=== PATIENT | female | born 1965 | race Caucasian/White ===

== ENCOUNTER 2016-07-05 20:41 | Emergency (ER) | payer MEDICAID ==
[2016-07-05 21:44] LABS: Urine Appearance Clear; Urine Bilirubin Negative (NEGATIVE); Urine Color Yellow; Urine Ketone Negative (NEGATIVE)
[2016-07-05 21:45] LABS: Urine Blood Negative /ul (NEGATIVE); Urine Nitrite Negative (NEGATIVE); Urine Protein Negative (NEGATIVE); Urine Specific Gravity 1.005 SP.GR. (1.005-1.010); Urine Urobilinogen Normal (NORMAL); Urine pH 6.5 pH (5.0-7.0)
[2016-07-05 21:50] LABS: Urine RBC None Seen /hpf (0-5); Urine WBC None Seen /hpf (0-5)
[2016-07-05 21:51] LABS: Urine Bacteria None Seen
--- NOTE | 2016-07-05 22:05 | ERNOTE ---
Back Pain ER HPI Date of Service: 07/05/16 Time Seen by Provider: 07/05/16 22:00 Source: patient, family - GRAND DAUGHTER. Immunizations: IMMUNIZATION HX Immunizations Up to Date Yes Immunizations Comment hepatitis shots up to date History of Influenza Vaccine Yes Hx Pneumococcal Vaccination No Allergies/Adverse Reactions: Allergies morphine Allergy (Mild, Verified 10/09/15 12:10) Hives oxycodone HCl [From Percocet] Adverse Reaction (Mild, Verified 10/09/15 12:10) Nausea Penicillins Adverse Reaction (Mild, Verified 10/09/15 12:10) RASH Home Medications: HOME MEDICATIONS Amlodipine Besylate [Norvasc] 5 mg PO DAILY 01/15/13 [Last Taken 03/02/14 08:00] Estradiol [Estrace] 1 mg PO DAILY 01/15/13 [Last Taken 03/02/14 08:00] Ibuprofen [Motrin] 800 mg PO TID PRN 01/15/13 [Last Taken 03/02/14 08:00] Levothyroxine Sodium [Synthroid] 25 mcg PO DAILY 01/15/13 [Last Taken 03/02/14 08:00] Lisinopril 10 mg PO DAILY 01/15/13 [Last Taken 03/02/14 08:00] Omeprazole [Prilosec] 40 mg PO DAILY 01/15/13 [Last Taken 03/02/14 08:00] Pravastatin Sodium 40 mg PO HS 01/15/13 [Last Taken 03/01/14 22:00] Topiramate [Topamax] 100 mg PO BID 05/24/13 [Last Taken 03/02/14 08:00] Calcium Carbonate/Vitamin D3 [Calcium 600 + Vit D 400 Tablet] 3 each PO DAILY [Last Taken Unknown] Benzonatate [Tessalon Perle] 100 mg PO TID #30 capsule 10/09/15 [Last Taken Unknown] Cephalexin Monohydrate [Keflex] 500 mg PO QID #40 cap 10/09/15 [Last Taken Unknown] Doxycycline Monohydrate 100 mg PO BID 10/09/15 [Last Taken Unknown] hydrOXYzine HCL [Atarax] 25 mg PO DAILY 10/09/15 [Last Taken Unknown] Narrative: PT C/O BURNING, SHARP PAIN TO LEFT GETACHEW- LATERAL UPPER RIB CAGE. NO KNOWN INJURY. USING IBUPROFEN 800 MG. 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 SHE HAS HAD IT PRESENT CONTINUALLY FOR 1 1/2 WEEKS. SHE DENIES DOING ANY EXERCISE OR OTHER VIGOROUS ACTIVITY. SHE DOES HAVE ASTHMA FOR WHICH SHE HAS OCCASIONAL COUGH AND USES AN INHALER. NO RECENT FEVER. SHE HAS A HISTORY OF CHRONIC SINUSITIS. NO KNOWN RASH TO THE STATED AREA. SHE DENIES OTHER MEDICAL PROBLEM. Timing: Reports: constant Possible Precipitating Factor: Reports: lifting - SHE STATES SHE NOTICES IT MORE WHEN SHE LIFTS HER LEFT ARM UP TO THE HORIZONTAL LIKE WHEN SHE LIFTS IT TO REST HER ARM ON THE CARDOOR. Review of Systems - Review of Systems Constitutional: Present: See HPI EYE: Present: no symptoms reported ENT: Present: no symptoms reported Respiratory: Present: See HPI Cardiology: Present: See HPI Genitourinary: Present: no symptoms reported Musculoskeletal: Present: See HPI Skin: Present: no symptoms reported Neurological: Present: no symptoms reported Endocrine: Present: no symptoms reported Hematologic/Lymphatic: Present: no symptoms reported Psych: Present: no symptoms reported All Other Systems: All systems neg except as marked - Patient's Past Medical History Patient History - Medical: Anxiety, GERD, Hypothyroidism Patient History - Cardiac/Respiratory: Hypertension, Hyperlipidemia Patient History - Cancer: No Hx of Cancer Patient History - Surgical Procedures: Appendectomy, Cholecystectomy, Hysterectomy, Total Knee Replacement, T & A, Other Patient History - Other: None - Social History Living Situations: significant other Abuse History: No History of abuse Psych History: Hx of Anxiety Does anyone smoke in the home?: No Smoking Status: Never smoker Have you smoked in the past 12 months: No Do you dip or chew tobacco: No Alcohol Use: rarely Drug Use: none - Immunizations Immunizations Up to Date: Yes Hx Pneumococcal Vaccination: No History of Influenza Vaccine: Yes Physical Exam - Physical Exam General Appearance: Present: wd/wn, alert, no apparent distress - PT DOES HAVE A TIRED APPEARANCE WITH FLAT AFFFECT Respiratory: Present: no respiratory distress, normal breath sounds, no accessory muscle use, lungs clear, chest tenderness - SHE C/O OF A POINT TENDERNESS TO UPPER LATERAL LEFT CHEST BETWEEN HER LEFT BREAST AND ANTERIOR SHOULDER. THERE IS NO SIGN OF ERYTHEMA , BRUISE OR ABRASION. THERE IS NO PALPABLE NODULE . NO RIB CREPITUS. SHE DESCRIBES THE SORE AREA BEING SUPERFICIAL IN THE FAT AND MUSCLE OF THE PECTORALIS MUSCLE . THERE IS NO RASH. Cardiovascular/Chest: Present: regular rate, rhythm, no murmur, normal peripheral pulses Back Exam: Present: normal inspection, normal range of motion, no CVA tenderness , no vertebral tenderness Extremity Exam: Present: normal inspection, normal range of motion, no edema Neurological Exam: Present: alert, oriented Skin Exam: Present: normal color, warm/dry. Absent: skin rash Lymphatic Exam: Present: no adenopathy - NO LEFT AXILLA LYMPHADENOPATHY ED Progress - Vital Signs Patient's Vital Signs:: I have reviewed the patient's vital signs. Vital Signs: Vital Signs 07/05/16 07/05/16 21:12 21:32 Temperature 37.2 C 37.2 C Pulse Rate 75 78 Respiratory 17 17 Rate Blood Pressure 144/87 144/69 O2 Sat by Pulse 100 100 Oximetry - X-Ray X-Ray #1 X-Ray: chest Interpretation: Interp. by me - SHE HAS HAD SEVERAL CHEST AND LEFT RIB XRAYS OVER THE PAST FEW YEARS AND TODAYS SHOWS NO NEW FINDINGS. SHE HAS A STABLE LEFT LUNG NODULE NOTED ON PRIOR XRAYS. - Progress/Reassessment Chief Complaint: Back Pain Departure Clinical Impression: Chest wall discomfort - Departure Disposition: Home Follow Up Needed Condition: Good Instructions: Chest Wall Pain Additional Instructions: SINCE IBUPROFEN IS NOT HELPING , STOP USING IT AND GIVE A TRIAL OF ALEVE, 1-2 TABLETS EVERY 12 HOURS. YOU SHOULD ALSO TRY TOPICAL CAPSAICIN OR PRE-FORM OR BIO-FREEZE TO SEE IF ONE OF THOSE PRODUCTS HELP. ACTIVITY TOLERATED. SEE YOUR FAMILY DOCTOR IF WORSE OR NOT IMPROVING IN 5-7 DAYS. I SUSPECT THIS IS A MUSCULAR STRAIN. Referrals: Kell Ayala FNP [Primary Care Provider] -
--- OUTSIDE RECORDS SUMMARY | 2016-07-05 22:08 | XMS REPORT | Continuity of Care Document ---
:1965 Author Organization [facility] ([facility]) Address [address] [place] [address] Phone [phone] Care Team Providers Name Role Phone Denisse Solo Pao Primary Care Provider [phone] Source Comments This disclosure is being made pursuant to the Care Everywhere program, applicable federal and state laws, and may not contain all informaitonavailable regarding this patient.[facility] ([facility]) Active Allergies and Adverse Reactions Allergen Noted Date Severity Reactions Comments Morphine 11/25/2011 Urticaria (Hives),Pruritus Penicillins 09/08/2008 Unknown Current Medications Prescription Sig. Disp. Refills Start Date End Date Status CALCIUM CITRATE, 600 mg 3 times daily. 07/27/2009 Active BULK, lisinopril 10 mg Take 2 Tabs by mouth 60 Tab 6 01/27/2012 Active tablet daily. Indications: HYPERTENSION amLODIPine 5 mg Take 1 Tab by mouth 60 Tab 6 01/27/2012 Active tablet daily. Indications: HYPERTENSION pravastatin 40 mg Take 1 Tab by mouth 60 Tab 6 01/27/2012 Active tablet every evening. Indications: MIXED HYPERLIPIDEMIA ibuprofen (MOTRIN) Take 1 Tab by mouth 90 Tab 6 01/27/2012 Active 800 mg tablet every 8 hours as needed. Indications: PAIN levothyroxine 25 mcg Take 1 Tab by mouth 60 Tab 6 01/27/2012 Active tablet every morning before breakfast. Indications: HYPOTHYROIDISM SUMAtriptan Take 1 Tab by mouth 9 Tab 3 01/27/2012 Active (IMITREX) 100 mg once as needed. May tablet repeat in 2 hours if needed. Indications: MIGRAINE traZODone 50 mg Take 1 Tab by mouth at 60 Tab 3 01/27/2012 Active tablet bedtime. Indications: INSOMNIA fluticasone 50 use 2 Sprays into the 16 g 3 01/27/2012 Active mcg/Actuation nasal nose daily. spray Indications: ALLERGIC RHINITIS estradiol 1 mg Take 1 Tab by mouth 60 Tab 3 01/28/2012 Active tablet daily. Indications: VASOMOTOR SYMPTOMS ASSOCIATED WITH MENOPAUSE omeprazole 20 mg Take 1 Cap by mouth 2 120 Cap 6 05/26/2012 Active extended release times daily. capsule Indications: GASTROESOPHAGEAL REFLUX gabapentin 100 mg 1 tab 3 times a day 90 Tab 11 05/26/2012 Active tablet for the 1st week,2 tab 3 times a day for 2d week, 3 tab 3 times a day for 3d week. Indications: NEUROPATHIC PAIN estrogens, Insert 0.5 gr daily 1 Tube 11 05/26/2012 Active conjugated for 2 weeks,then twice (PREMARIN) 0.625 a week Indications: mg/gram vaginal ATROPHIC VAGINITIS cream ASSOCIATED WITH MENOPAUSE aspirin 81 mg Take 1 Tab by mouth 30 Tab 3 06/11/2012 Active chewable tablet daily. Indications: MYOCARDIAL INFARCTION PREVENTION azelastine 0.1 % use 2 Sprays into the 30 mL 11 08/17/2012 Active (137 mcg) nasal nose 2 times daily. spray Use in each nostril as directed Indications: VASOMOTOR RHINITIS Active Problems Problem Noted Date Chronic rhinitis 08/17/2012 Family history of early CAD 06/11/2012 Abnormal stress echo 06/11/2012 Shoulder pain, left 05/26/2012 Chest pain, atypical 05/26/2012 Dyspareunia 02/24/2012 Knee pain, right 01/27/2012 GERD (gastroesophageal reflux disease) 11/25/2011 Fibromyalgia 11/25/2011 Hypertension 11/25/2011 Hyperlipidemia 11/25/2011 H/O polymyalgia rheumatica 11/25/2011 Post menopausal syndrome 11/25/2011 Migraines 11/25/2011 Elevated liver function tests 11/25/2011 Back pain 04/10/2009 Spondylo-Arthropathy, suspicion for 04/10/2009 Osteoporosis 04/10/2009 Anemia 04/10/2009 Resolved Problems Problem Noted Date Resolved Date Dysuria 02/24/2012 08/17/2012 Enlarged lymph node 01/27/2012 08/17/2012 Allergic rhinitis 11/25/2011 08/17/2012 Pelvic pain 11/25/2011 08/17/2012 Immunizations Name Dates Previously Given Next Due Influenza, PF 11/25/2011 Influenza, unspecified 02/21/2009 Social History Tobacco Use Types Packs/Day Years Used Date Never Smoker Smokeless Tobacco: Never Used Tobacco Cessation:Counseling Given: Yes Comments: Alcohol Use Drinks/Week oz/Week Comments Yes 1 Cans of beer 0 to 1/month Last Filed Vital Signs Vital Sign Reading Time Taken Blood Pressure 135/91 08/17/2012 1:12 PM CDT Pulse 82 08/17/2012 1:12 PM CDT Temperature 36.2 C (97.2 F) 08/17/2012 1:12 PM CDT Respiratory Rate - - Height 1.651 m (5' 5") 08/17/2012 1:12 PM CDT Weight 72 kg (158 lb 11.7 oz) 08/17/2012 1:12 PM CDT Body Mass Index 26.41 08/17/2012 1:12 PM CDT Oxygen Saturation 98% 08/17/2012 1:12 PM CDT Plan of Care Patient Goal Type Goal Weight Weight below 91 kg (200 lb) Blood Pressure Blood Pressure below 130/80 Health Maintenance Due Date Last Done Comments HCV Screening 1965 MMR Vaccine 06/19/1981 Td Vaccine 06/19/1981 Cervical Cancer Screening 06/19/1993 Hepatitis B Vaccine (2 of 3 10/01/2001 09/03/2001 - Twinrix Series) Mammogram 01/26/2013 01/27/2012 Colonoscopy 06/19/2013 Influenza Vaccine: Seasonal 10/09/2015 11/25/2011, (#1) 02/21/2009 Lipid Disorder Screening 05/26/2017 05/26/2012, 01/27/2012 Tdap Vaccine Addressed 12/14/2010 Overridden with the intention of not completing the topic Results from Last 3 Months Not on file
[2016-07-06 00:55] VITALS: BP 133/90
== END 2016-07-06 00:53 | disposition home or self-care (01) ==
LOC: ER 20:41
DX: R07.89 Other chest pain (principal)

== ENCOUNTER 2018-01-11 08:08 | Observation (INO) ==
[2018-01-11 08:53] LABS: Hematocrit 38.6 % (37.0-47.0); Hemoglobin 12.6 gm/dL (12.5-16.0); Mean Corpuscular Hemoglobin 32.3 pg (27-31); Mean Corpuscular Hgb Conc 32.6 g/dl (32-36); Mean Platelet Volume 10.8 fl (8-12.5); Neutrophil % 90.3 % (42-75.0); Platelet Count 371 K/mm3 (150-450); Red Cell Distribution Width 11.9 % (11.5-14.0); White Blood Count 17.7 K/mm3 (4.0-10.5)
[2018-01-11] MEDS ORDERED: KETOROLAC TROMETHAMINE 30 MG/ML VIAL IV ONE (08:55)
[2018-01-11] MEDS ORDERED: NORMAL SALINE 1,000 ML IV ONE ×2 (08:55→13:14)
[2018-01-11] MEDS ORDERED: diphenhydrAMINE HCL 50 MG/ML VIAL IV ONE (08:56)
[2018-01-11] MEDS ORDERED: PROCHLORPERAZINE EDISYLATE 5 MG/ML VIAL IV ONE (08:56)
[2018-01-11] MEDS ORDERED: HYDROmorphone HCL 1 MG/ML DISP.SYRIN IV ONE ×2 (08:56→13:06)
[2018-01-11] MEDS ORDERED: KETOROLAC TROMETHAMINE 30 MG/ML VIAL ONE (08:59)
[2018-01-11] MEDS ORDERED: PROCHLORPERAZINE EDISYLATE 5 MG/ML VIAL ONE (08:59)
[2018-01-11] MEDS ORDERED: HYDROmorphone HCL 1 MG/ML DISP.SYRIN ONE ×2 (08:59→13:07)
[2018-01-11] MEDS ORDERED: diphenhydrAMINE HCL 50 MG/ML VIAL ONE (08:59)
[2018-01-11 09:07] LABS: Anion Gap 14.4 mmol/L (6.8-13.8); BUN/Creatinine Ratio 14.3 (9.0-21.6); Bilirubin, Total 0.3 mg/dL (0.0-1.1); Ca. Corrected For Albumin 8.5 mg/dL (8.4-10.2); Calcium * 8.8 mg/dL (7.9-10.9); Carbon Dioxide 23.5 mmol/L (24-32.6); Potassium 3.9 mmol/L (3.4-4.6); Total Protein 7.1 gm/dL (6.2-8.2)
[2018-01-11 10:44] LABS: Urine Appearance Cloudy (CLEAR); Urine Bilirubin Negative (NEGATIVE); Urine Blood 150 /ul (NEGATIVE); Urine Color Yellow; Urine Ketone 15 mg/dL (NEGATIVE); Urine Nitrite Positive (NEGATIVE); Urine Protein Negative (NEGATIVE); Urine Specific Gravity 1.025 SP.GR. (1.005-1.010); Urine Urobilinogen Normal (NORMAL); Urine pH 6.5 pH (5.0-7.0)
[2018-01-11 10:45] LABS: Urine Bacteria 4+; Urine RBC 0-5 /hpf (0-5); Urine WBC 0-5 /hpf (0-5)
[2018-01-11] MEDS ORDERED: DIATRIZOATE MEGLUMINE, SODIUM 30 ML BTL PO ONE (10:55)
[2018-01-11] MEDS ORDERED: DIATRIZOATE MEGLUMINE, SODIUM 30 ML BTL ONE (10:56)
[2018-01-11] MEDS ORDERED: LEVOFLOXACIN IN DEXTROSE 5 % 500 MG/100 ML BAG IV SCH (13:15)
--- NOTE | 2018-01-11 13:44 | ERNOTE ---
Abdominal HPI - Narrative Date of Service: 01/11/18 - General Chief Complaint: Abdominal Pain Time Seen by Provider: 01/11/18 08:51 Source: patient Exam Limitations: no limitations - Immun/Allergies/Home Medications Immunizatons: IMMUNIZATION HX Immunizations Up to Date Yes History of Influenza Vaccine Yes Hx Pneumococcal Vaccination No Allergies/Adverse Reactions: Allergies doxycycline Allergy (Severe, Verified 01/11/18 08:38) chest pain morphine Allergy (Mild, Verified 01/11/18 08:38) Hives oxycodone HCl [From Percocet] Adverse Reaction (Mild, Verified 01/11/18 08:38) Nausea Penicillins Adverse Reaction (Mild, Verified 01/11/18 08:38) RASH Home Medications: HOME MEDICATIONS Ibuprofen [Motrin] 800 mg PO TID PRN 01/15/13 [Last Taken 03/02/14 08:00] Levothyroxine Sodium [Synthroid] 25 mcg PO DAILY 01/15/13 [Last Taken 03/02/14 08:00] Lisinopril 10 mg PO DAILY 01/15/13 [Last Taken 03/02/14 08:00] Omeprazole [Prilosec] 40 mg PO DAILY 01/15/13 [Last Taken 03/02/14 08:00] Pravastatin Sodium 40 mg PO HS 01/15/13 [Last Taken 03/01/14 22:00] Calcium Carbonate/Vitamin D3 [Calcium 600 + Vit D 400 Tablet] 3 ea PO DAILY 11/02/14 [Last Taken Unknown] albuterol sulfate HFA 90 mcg/actuation aerosol inhaler 2 puff IH Q4H PRN 11/03/17 [Last Taken Unknown] fluticasone 50 mcg/actuation nasal spray,suspension 2 spray BRADLEY DAILY 11/03/17 [Last Taken Unknown] onabotulinumtoxinA 100 unit solution for injection 5 unit SUB-Q .3 months ea 11/06/17 [Last Taken Unknown] topiramate 50 mg tablet 50 mg PO DAILY 11/06/17 [Last Taken Unknown] estradiol 1 mg tablet 1 mg PO DAILY #30 tab 11/13/17 [Last Taken Unknown] - History of Present Illness Narrative: Patient presents to the ED for severe right flank and abdominal pain. She states that this hit her all of a sudden this morning, severe, vomiting, never had anything like this before. No diarrhea. No Cp or SOB. She states pain constant, severe. Nothing makes it better or worse. Has not seen anyon else for this. Timing: constant Quality: severe Activities at Onset: none Modifying Factors - (Improves): Present: other - nothing Modifying Factors - (Worsens): Present: other - nothing Associated Symptoms: Present: nausea, vomiting. Absent: chest pain, shortness of breath Prior Abdominal Problems: Absent: similar symptoms Prior Treatment: Absent: recently seen Review of Systems - Review of Systems Constitutional: Absent: fever Respiratory: Absent: shortness of breath Cardiology: Absent: chest pain Gastrointestinal/Abdominal: Present: See HPI Genitourinary: Present: See HPI Skin: Absent: rash Neurological: Absent: weakness All Other Systems: All systems neg except as marked Medical History (Last Reviewed 01/11/18 @ 13:32 by Jerome Cuello MD) Shoulder pain, left (Chronic) Onset Date: Unknown Seronegative spondyloarthropathy (Chronic) Onset Date: 10/27/11 Panic disorder (Chronic) Onset Date: 10/27/11 Osteoporosis (Chronic) Onset Date: ~2007 Osteoarthritis (Chronic) Onset Date: 10/27/11 Migraine (Chronic) Onset Date: 10/27/11 Degenerative joint disease of knee (Chronic) Onset Date: 11/30/12 Hypothyroidism (Chronic) Onset Date: 10/27/11 Hypertension (Chronic) Onset Date: 10/27/11 Hyperlipidemia (Chronic) Onset Date: 10/27/11 Hormone replacement therapy (Chronic) Onset Date: 10/27/11 Lumbar herniated disc (Chronic) Onset Date: Unknown GERD (gastroesophageal reflux disease) (Chronic) Onset Date: 10/27/11 Fibromyalgia (Chronic) Onset Date: 10/27/11 Back pain (Chronic) Onset Date: 10/27/11 Arthritis (Chronic) Onset Date: Unknown Depression Onset Date: 10/27/11 Elevated LFTs Onset Date: 10/27/11 Endometriosis, uterus Onset Date: Unknown H/O barium enema Onset Date: Unknown redundant colon Surgical History: Surgical History (Last Reviewed 01/11/18 @ 13:32 by Jerome Cuello MD) H/O bladder repair surgery Onset Date: 01/18/09 bladder sling - H/O endoscopy Onset Date: ~2006 revealed Acid Reflux H/O nasal septoplasty Onset Date: 09/08/03 Dr. Andino History of appendectomy Onset Date: ~2006 History of arthroscopy of left shoulder Onset Date: 11/09/14 Dr. Lopez History of cholecystectomy Onset Date: ~2006 S/P TASIA-BSO Onset Date: ~1993 endometriosis S/P arthroscopic surgery of right knee Onset Date: 01/25/13 x4 , '13 Richard S/P colonoscopy Onset Date: ~2016 Koko 2017, [place] - '04 redundant colon, normal to splenic flexure. Barium enema obtained. Redundant colon. Further screenings with barium enema. (colonoscopy not possible) S/P epidural steroid injection Onset Date: ~200902/12/10, 03/01/10 L5 - S1 S/P tonsillectomy and adenoidectomy Onset Date: ~1971 S/P wrist surgery Onset Date: Unknown x2 for ganglion cyst Family History: Family History (Last Reviewed 01/11/18 @ 13:32 by Jerome Cuello MD) Father Cancer skin CAD (coronary artery disease) Myocardial infarction Hypertension Hyperlipemia Diabetes Heart disease Kidney disease Gout Glaucoma Mother Hypertension Diabetes Kidney disease Cancer kidney cancer, uterine cancer Goiter thyroid removed Hernia CHF (congestive heart failure) Sister Endometriosis Aunt Cancer maternal aunt with breast cancer Social History: Preferred Language Mohawk Smoking Status Never smoker Abuse History No History of abuse Psych History Hx of Anxiety Alcohol Use none Drug Use none (Last Updated 11/06/17 @ 15:34 by Adina Carcamo [facility]) No Social History Section defined Physical Exam - Physical Exam General Appearance: Present: alert, other - appears very uncomfortable d/t pain Head Exam: Present: normal inspection, no evidence of injury Eye Exam: Normal inspection: bilateral, PERRL: bilateral Ears, Nose, Throat: Present: normal ENT inspection Neck: Present: normal inspection Respiratory: Present: no respiratory distress, normal breath sounds, no accessory muscle use, lungs clear Cardiovascular/Chest: Present: regular rate, rhythm Gastrointestinal/Abdominal: Present: normal bowel sounds, nondistended, soft, tenderness, other - diffuse right sided tenderness, no peritoneal signs Back Exam: Present: CVA tenderness (R) Extremity Exam: Present: normal range of motion Neurological Exam: Present: alert, no motor/sensory deficits Skin Exam: Present: normal color, warm/dry ED Progress - Results and Orders Patient's Lab Results:: I have reviewed the patient's lab results. - Vital Signs Patient's Vital Signs:: I have reviewed the patient's vital signs. Vital Signs: Vital Signs 01/11/18 08:33 01/11/18 09:15 01/11/18 09:37 Temperature 36.9 C Pulse Rate 52 L 65 53 L Respiratory Rate 12 12 12 Blood Pressure 156/74 H 119/58 O2 Sat by Pulse Oximetry 95 100 100 01/11/18 09:59 01/11/18 10:17 01/11/18 10:45 Temperature Pulse Rate 77 73 58 L Respiratory Rate 12 12 12 Blood Pressure 118/58 118/58 122/63 O2 Sat by Pulse Oximetry 100 100 100 01/11/18 11:00 01/11/18 11:19 01/11/18 11:33 Temperature Pulse Rate 72 68 66 Respiratory Rate 12 12 12 Blood Pressure 122/63 133/81 124/80 O2 Sat by Pulse Oximetry 100 100 100 01/11/18 12:00 01/11/18 12:19 01/11/18 12:56 Temperature Pulse Rate 76 60 62 Respiratory Rate 12 12 12 Blood Pressure 136/76 137/71 134/74 O2 Sat by Pulse Oximetry 100 98 98 01/11/18 13:14 Temperature Pulse Rate 74 Respiratory Rate 12 Blood Pressure 136/77 O2 Sat by Pulse Oximetry 98 - CT/Ultrasound CT/Ultrasound Narrative: I reviewed the official radiology report CT abd/pelvis - Progress/Reassessment Chief Complaint: Abdominal Pain Progress Note-Subjective: 01/11/18 13:41 IV fluids, Toradol, Dilaudid and anti emetic given. Does have right sided pain. She was feeling improved but then worsened with repeat vomiting and severe pain requiring repeated IV narcotics. She does have elevated WBC and some bacteria on UA, IV Abx given for this. She did not feel her pain was under good enough control to go home. D/W Dr Carmen who will admit obs, patient is happy with this. Departure Clinical Impression: Intractable pain, Ureterolithiasis, Leukocytosis - Departure Disposition: Still a patient Condition: Stable Referrals: Kell Ayala FNP [Primary Care Provider] -
[2018-01-11] MEDS ORDERED: ONDANSETRON 4 MG TAB.RAPDIS PO PRN (15:07)
--- NOTE | 2018-01-11 15:19 | HP ---
Chief Complaint - Chief Complaint Date of Service: 01/11/18 Time of Service: 15:07 Chief Complaint: right flank pain History of Present Illness: Patient woke today with right flank pain that radiated around her right side to her pelvis. She vomited twice this morning, and twice in the ED. Hasn't been febrile, but has had the chilld. Has never had this before. Has not noticed hematuria or dysuria, but she has difficulty urinating. She will feel like she needs to urinate, but is unable, and only urinates a small amount. Medical History (Last Reviewed 01/11/18 @ 14:22 by Meagan Chowdhury RN) Shoulder pain, left (Chronic) Onset Date: Unknown Seronegative spondyloarthropathy (Chronic) Onset Date: 10/27/11 Panic disorder (Chronic) Onset Date: 10/27/11 Osteoporosis (Chronic) Onset Date: ~2007 Osteoarthritis (Chronic) Onset Date: 10/27/11 Migraine (Chronic) Onset Date: 10/27/11 Degenerative joint disease of knee (Chronic) Onset Date: 11/30/12 Hypothyroidism (Chronic) Onset Date: 10/27/11 Hypertension (Chronic) Onset Date: 10/27/11 Hyperlipidemia (Chronic) Onset Date: 10/27/11 Hormone replacement therapy (Chronic) Onset Date: 10/27/11 Lumbar herniated disc (Chronic) Onset Date: Unknown GERD (gastroesophageal reflux disease) (Chronic) Onset Date: 10/27/11 Fibromyalgia (Chronic) Onset Date: 10/27/11 Back pain (Chronic) Onset Date: 10/27/11 Arthritis (Chronic) Onset Date: Unknown Depression Onset Date: 10/27/11 Elevated LFTs Onset Date: 10/27/11 Endometriosis, uterus Onset Date: Unknown H/O barium enema Onset Date: Unknown redundant colon Surgical History: Surgical History (Last Reviewed 01/11/18 @ 14:22 by Meagan Chowdhury RN) H/O bladder repair surgery Onset Date: 01/18/09 bladder sling - H/O endoscopy Onset Date: ~2006 revealed Acid Reflux H/O nasal septoplasty Onset Date: 09/08/03 Dr. Andino History of appendectomy Onset Date: ~2006 History of arthroscopy of left shoulder Onset Date: 11/09/14 Dr. Lopez History of cholecystectomy Onset Date: ~2006 S/P TASIA-BSO Onset Date: ~1993 endometriosis S/P arthroscopic surgery of right knee Onset Date: 01/25/13 x4 , Richard S/P colonoscopy Onset Date: ~2016 Koko 2016, Joanna - redundant colon, normal to splenic flexure. Barium enema obtained. Redundant colon. Further screenings with barium enema. (colonoscopy not possible) S/P epidural steroid injection Onset Date: ~200902/12/10, 03/01/10 L5 - S1 S/P tonsillectomy and adenoidectomy Onset Date: ~1971 S/P wrist surgery Onset Date: Unknown x2 for ganglion cyst Family History: Family History (Last Reviewed 01/11/18 @ 14:22 by Meagan Chowdhury RN) Father Cancer skin CAD (coronary artery disease) Myocardial infarction Hypertension Hyperlipemia Diabetes Heart disease Kidney disease Gout Glaucoma Mother Hypertension Diabetes Kidney disease Cancer kidney cancer, uterine cancer Goiter thyroid removed Hernia CHF (congestive heart failure) Sister Endometriosis Aunt Cancer maternal aunt with breast cancer Social History: Patient Lives/Resources With Spouse Utilized Occupation daycare provider Preferred Language Malian Do you have any jew or No cultural preference? Smoking Status Never smoker Have you smoked in the past 12 No months Abuse History No History of abuse Psych History Hx of Anxiety Alcohol Use none Drug Use none (Last Updated 11/06/17 @ 15:34 by WILBERT Gardner) No Social History Section defined Review Of Systems (GEN) - Review of Systems Generalized/Overall Review: Present: Chills. Absent: Fever Respiratory: Absent: Cough, Shortness of Breath Cardiac: Absent: Chest Pain, Edema Abdominal: Present: Nausea, Vomiting, Abdominal Pain. Absent: Diarrhea Genitourinary: Present: Oliguria. Absent: Dysuria Immunizations: IMMUNIZATION HX Immunizations Up to Date Yes History of Influenza Vaccine Yes Hx Pneumococcal Vaccination No Allergies/Adverse Reactions: Allergies Allergy/AdvReac Type Severity Reaction Status Date / Time doxycycline Allergy Severe chest pain Verified 01/11/18 08:38 morphine Allergy Mild Hives Verified 01/11/18 08:38 oxycodone HCl [From Percocet] AdvReac Mild Nausea Verified 01/11/18 08:38 Penicillins AdvReac Mild RASH Verified 01/11/18 08:38 Home Medications: HOME MEDICATIONS Ibuprofen [Motrin] 800 mg PO TID PRN 01/15/13 [Last Taken 03/02/14 08:00] Levothyroxine Sodium [Synthroid] 25 mcg PO DAILY 01/15/13 [Last Taken 01/10/18] Lisinopril 10 mg PO DAILY 01/15/13 [Last Taken 01/10/18] Omeprazole [Prilosec] 40 mg PO DAILY 01/15/13 [Last Taken 01/10/18] Pravastatin Sodium 40 mg PO HS 01/15/13 [Last Taken 01/10/18] Calcium Carbonate/Vitamin D3 [Calcium 600 + Vit D 400 Tablet] 3 ea PO DAILY 11/02/14 [Last Taken 01/10/18] albuterol sulfate HFA 90 mcg/actuation aerosol inhaler 2 puff IH Q4H PRN 11/03/17 [Last Taken Unknown] fluticasone 50 mcg/actuation nasal spray,suspension 2 spray [place] DAILY 11/03/17 [Last Taken 01/10/18] onabotulinumtoxinA 100 unit solution for injection 5 unit SUB-Q .3 months ea 11/06/17 [Last Taken Unknown] topiramate 50 mg tablet 50 mg PO DAILY 11/06/17 [Last Taken 01/10/18] estradiol 1 mg tablet 1 mg PO DAILY #30 tab 11/13/17 [Last Taken 01/10/18] Exam - Exam Vital Signs: Vital Signs - Last Taken Temp 37 C 01/11/18 13:41 Pulse 66 01/11/18 13:41 Resp 12 01/11/18 13:41 BP 143/72 H 01/11/18 13:41 Pulse Ox 99 01/11/18 13:41 Constitutional: Present: Alert, Oriented x3, Cooperative, Well developed, No distress Respiratory: Present: normal breath sounds, no respiratory distress Cardiovascular/Chest: Present: regular rate, rhythm Abdomen: Present: soft, tender - right sided. Absent: CVA tenderness Extremity: Absent: lower extremity edema Neurologic: Present: normal mood/affect Eye contact: Present: cooperative, good eye contact Diagnostic Studies: Abnormal Lab Results 01/11/18 01/11/18 01/11/18 Range/Units 08:52 08:52 10:23 WBC 17.7 H (4.0-10.5) K/mm3 RBC 3.90 L (4.2-5.4) M/mm3 MCH 32.3 H (27-31) pg Immature Gran % (Auto) 0.50 H (0.001-0.429) % Immature Gran # (Auto) 0.08 H (0.000-0.0310) K/mm3 Neutrophils % 90.3 H (42-75.0) % Lymphocytes % 6.0 L (20-51) % Neutrophils # 16.0 H (1.3-6.0) K/mm3 Lymphocytes # 1.06 L (1.5-3.5) k/mm3 Plasma Sodium 143 H (130-142) mmol/L Chloride 108 H (97-106) mmol/L Carbon Dioxide 23.5 L (24-32.6) mmol/L Anion Gap 14.4 H (6.8-13.8) mmol/L Est GFR (Non-Af Amer) 58 L (60-130) mL/min Random Glucose 153 H (70-110) mg/dL ALT 17 L (19-67) U/L Urine Blood 150 H (NEGATIVE) /ul Urine Nitrate Positive H (NEGATIVE) Ur Epithelial Cells 5-10 H (0-5) /hpf Urine Bacteria 4+ H (NONE) Laboratory Results WBC 17.7 K/mm3 (4.0-10.5) H 01/11/18 08:52 RBC 3.90 M/mm3 (4.2-5.4) L 01/11/18 08:52 Hgb 12.6 gm/dL (12.5-16.0) 01/11/18 08:52 Hct 38.6 % (37.0-47.0) 01/11/18 08:52 MCV 99.0 fl (78-100) 01/11/18 08:52 MCH 32.3 pg (27-31) H 01/11/18 08:52 MCHC 32.6 g/dl (32-36) 01/11/18 08:52 RDW 11.9 % (11.5-14.0) 01/11/18 08:52 Plt Count 371 K/mm3 (150-450) 01/11/18 08:52 MPV 10.8 fl (8-12.5) 01/11/18 08:52 Immature Gran % (Auto) 0.50 % (0.001-0.429) H 01/11/18 08:52 Immature Gran # (Auto) 0.08 K/mm3 (0.000-0.0310) H 01/11/18 08:52 Neutrophils % 90.3 % (42-75.0) H 01/11/18 08:52 Lymphocytes % 6.0 % (20-51) L 01/11/18 08:52 Monocytes % 2.9 % (0.0-9) 01/11/18 08:52 Eosinophils % 0.1 % (0.0-3.0) 01/11/18 08:52 Basophils % 0.2 % (0.0-1.0) 01/11/18 08:52 Nucleated RBC % 0.0 k/mm3 (0-1) 01/11/18 08:52 Neutrophils # 16.0 K/mm3 (1.3-6.0) H 01/11/18 08:52 Lymphocytes # 1.06 k/mm3 (1.5-3.5) L 01/11/18 08:52 Monocytes # 0.5 k/mm3 (0.0-1.0) 01/11/18 08:52 Eosinophils # 0.0 k/mm3 (0.0-0.7) 01/11/18 08:52 Absolute Basophils 0.0 k/mm3 (0.0-0.1) 01/11/18 08:52 Sodium 142 mmol/L (132-142) 01/11/18 08:52 Plasma Sodium 143 mmol/L (130-142) H 01/11/18 08:52 Potassium 3.9 mmol/L (3.4-4.6) 01/11/18 08:52 Chloride 108 mmol/L (97-106) H 01/11/18 08:52 Carbon Dioxide 23.5 mmol/L (24-32.6) L 01/11/18 08:52 Anion Gap 14.4 mmol/L (6.8-13.8) H 01/11/18 08:52 BUN 15 mg/dL (3-23) 01/11/18 08:52 Creatinine 1.05 mg/dL (0.4-1.4) 01/11/18 08:52 Est GFR (Non-Af Amer) 58 mL/min (60-130) L 01/11/18 08:52 BUN/Creatinine Ratio 14.3 (9.0-21.6) 01/11/18 08:52 Random Glucose 153 mg/dL (70-110) H 01/11/18 08:52 Calcium 8.8 mg/dL (7.9-10.9) 01/11/18 08:52 Calcium Adj for Albumin 8.5 mg/dL (8.4-10.2) 01/11/18 08:52 Total Bilirubin 0.3 mg/dL (0.0-1.1) 01/11/18 08:52 AST 13 U/L (0-48) 01/11/18 08:52 ALT 17 U/L (19-67) L 01/11/18 08:52 Alkaline Phosphatase 90 U/L (50-170) 01/11/18 08:52 Total Protein 7.1 gm/dL (6.2-8.2) 01/11/18 08:52 Albumin 4.0 gm/dl (3.4-5.0) 01/11/18 08:52 Amylase 41 U/L (25-115) 01/11/18 08:52 Lipase 91 U/L (73-393) 01/11/18 08:52 Urine Color Yellow 01/11/18 10:23 Urine Appearance Cloudy (CLEAR) 01/11/18 10:23 Urine pH 6.5 pH (5.0-7.0) 01/11/18 10:23 Ur Specific [place] 1.025 SP.GR. (1.005-1.010) 01/11/18 10:23 Urine Protein Negative mg/dL (NEGATIVE) 01/11/18 10:23 Urine Glucose (UA) Negative mg/dL (NEGATIVE) 01/11/18 10:23 Urine Ketones 15 mg/dL (NEGATIVE) 01/11/18 10:23 Urine Blood 150 /ul (NEGATIVE) H 01/11/18 10:23 Urine Nitrate Positive (NEGATIVE) H 01/11/18 10:23 Urine Bilirubin Negative mg/dl (NEGATIVE) 01/11/18 10:23 Urine Urobilinogen Normal EU/dl (NORMAL) 01/11/18 10:23 Ur Leukocyte Esterase Negative /ul (NEGATIVE) 01/11/18 10:23 Urine RBC 0-5 /hpf (0-5) 01/11/18 10:23 Urine WBC 0-5 /hpf (0-5) 01/11/18 10:23 Ur Epithelial Cells 5-10 /hpf (0-5) H 01/11/18 10:23 Urine Bacteria 4+ (NONE) H 01/11/18 10:23 Urine Culture Comments Culture to follow 01/11/18 10:23 Assessment/Plan - Assessment/Plan (1) Ureterolithiasis Assessment: Received dilaudid in the ED. Her allergy list includes morphine and oxycodone, but will try hydrocodone for pain control. Start tamsulosin. Her stone is 0.4 mm in her distal right ureter, and should pass. She has moderate right sided hydronephrosis and hydroureter. Zofran for nausea. Her pain has been thus far uncontrolled, and she has been unable to maintain po hydration. Problem: Acute (2) Intractable pain Problem: Acute (3) Leukocytosis Assessment: She has a WBC of 17.7. With the 4+ bacteria and nitrates in her urine and chills, pyelonephritis is a possibility, though she did not have CVA tenderness. Will need to monitor for improvement. She received levaquin in the ED, and can continue. Problem: Acute
[2018-01-11] MEDS ORDERED: TAMSULOSIN HCL 0.4 MG CAP.SR.24H PO SCH (15:30)
[2018-01-11] MEDS: HYDROcodone/ACETAMINOPHEN 1 EACH TABLET PO PRN ×2 (16:26→22:07)
[2018-01-12] MEDS: HYDROcodone/ACETAMINOPHEN 1 EACH TABLET PO PRN (07:10)
--- NOTE | 2018-01-12 07:40 | DS ---
(1) Ureterolithiasis Problem: Acute (2) Intractable pain Problem: Acute (3) Leukocytosis Problem: Acute Description of Stay: Patient woke on 01/11 with right flank pain that radiated around her right side to her pelvis. She vomited twice that morning, and twice in the ED, and no more vomiting the remainder of admission. Hasn't been febrile, but has had the chills, so there was some concern for possible pyelonephritis. WBC elevated at 17.7. She was given a dose of levaquin. Has never had this before. Has not noticed hematuria or dysuria, but she has difficulty urinating. She was only able to urinate a small amount the day of admission, which improved during her stay. UA showed blood, nitrates, and bacteria. Her pain was controlled with po medications, and she was able to keep fluids down. She felt comfortable going h ome on the day of discharge. She did not think she passed the stone. She was afebrile overnight, and felt better, so abx were not continued on discharge. Procedures Performed: none Results and Findings: Lab Pending Results 01/11/18 08:52: WBC 17.7 H, RBC 3.90 L, Hgb 12.6, Hct 38.6, MCV 99.0, MCH 32.3 H, MCHC 32.6, RDW 11.9, Plt Count 371, MPV 10.8, Immature Gran % (Auto) 0.50 H, Immature Gran # (Auto) 0.08 H, Neutrophils % 90.3 H, Lymphocytes % 6.0 L, Monocytes % 2.9, Eosinophils % 0.1, Basophils % 0.2, Nucleated RBC % 0.0, Neutrophils # 16.0 H, Lymphocytes # 1.06 L, Monocytes # 0.5, Eosinophils # 0.0, Absolute Basophils 0.0 01/11/18 08:52: Sodium 142, Plasma Sodium 143 H, Potassium 3.9, Chloride 108 H, Carbon Dioxide 23.5 L, Anion Gap 14.4 H, BUN 15, Creatinine 1.05, Est GFR (Non- Af Amer) 58 L, BUN/Creatinine Ratio 14.3, Random Glucose 153 H, Calcium 8.8, Calcium Adj for Albumin 8.5, Total Bilirubin 0.3, AST 13, ALT 17 L, Alkaline Phosphatase 90, Total Protein 7.1, Albumin 4.0, Amylase 41, Lipase 91 01/11/18 10:23: Urine Color Yellow, Urine Appearance Cloudy, Urine pH 6.5, Ur Specific [place] 1.025, Urine Protein Negative, Urine Glucose (UA) Negative, Urine Ketones 15, Urine Blood 150 H, Urine Nitrate Positive H, Urine Bilirubin Negative, Urine Urobilinogen Normal, Ur Leukocyte Esterase Negative, Urine RBC 0-5, Urine WBC 0-5, Ur Epithelial Cells 5-10 H, Urine Bacteria 4+ H, Urine Culture Comments Culture to follow Discharge Location: Home Disposition: Home self-care Condition: Good Discharge Activity: Activity as tolerated Discharge Diet: General/regular food, Other - increase fluid intake Referrals: Kell Ayala FNP [Primary Care Provider] - Prescriptions (Any new or edited meds): HYDROcodone/ACETAMINOPHEN [[place] 5-325] 1 each PO Q4H PRN #20 tablet PRN Reason: Pain Ondansetron [Zofran Odt] 4 mg PO Q6H PRN #15 tab.rapdis PRN Reason: Nausea And Vomiting Tamsulosin HCl [Flomax] 0.4 mg PO DAILY@1800 #14 cap.sr.24h Complete Home Medications List: Complete Home Medication List: Ibuprofen [Motrin] 800 mg PO TID PRN 01/15/13 Levothyroxine Sodium [Synthroid] 25 mcg PO DAILY 01/15/13 Lisinopril 10 mg PO DAILY 01/15/13 Omeprazole [Prilosec] 40 mg PO DAILY 01/15/13 Pravastatin Sodium 40 mg PO HS 01/15/13 Calcium Carbonate/Vitamin D3 [Calcium 600-Vit D3 400 Tablet] 3 ea PO DAILY 11/02/14 albuterol sulfate HFA 90 mcg/actuation aerosol inhaler 2 puff IH Q4H PRN 11/03/17 fluticasone 50 mcg/actuation nasal spray,suspension 2 spray [place]ADLEY DAILY 11/03/17 onabotulinumtoxinA 100 unit solution for injection 5 unit SUB-Q .3 months ea 11/06/17 topiramate 50 mg tablet 50 mg PO DAILY 11/06/17 estradiol 1 mg tablet 1 mg PO DAILY #30 tab 11/13/17 HYDROcodone/ACETAMINOPHEN [[place] 5-325] 1 each PO Q4H PRN #20 tablet 01/12/18 Ondansetron [Zofran Odt] 4 mg PO Q6H PRN #15 tab.rapdis 01/12/18 Tamsulosin HCl [Flomax] 0.4 mg PO DAILY@1800 #14 cap.sr.24h 01/12/18
[2018-01-12 09:30] VITALS: BP 125/72
== END 2018-01-12 09:19 | disposition home or self-care (01) ==
LOC: MS 08:08 → ER 08:08 → MS 14:08
PROVIDERS: ADMIT Family Medicine; ATTEND Family Medicine
CPT/HCPCS: 36415; 74178; 80053; 81001; 82150; 83690; 85025; 87086; 90686; 96365; 96366; 96367; 96375; 99284; G0378